=== PATIENT | female | born 1970 | race Two or more races ===

== ENCOUNTER 2018-11-20 08:22 | Emergency (ER) | payer BC, OTHER ==
[2018-11-20] MEDS ORDERED: MORPHINE SULFATE 10 MG/ML INJ IV ONE ×3 (09:25→15:49)
[2018-11-20] MEDS ORDERED: DICYCLOMINE HCL INJ 20 MG/2 ML AMPULE IM ONE (09:25)
[2018-11-20] MEDS ORDERED: ONDANSETRON HCL INJ/PF 4 MG/2 ML SDV IV ONE (09:25)
--- NOTE | 2018-11-20 09:28 | ER Document Report ---
Addendum entered and electronically signed by DAPHNIE CHAUDHRY NP 11/20/18 17:43: Course - Re-evaluation Re-evalutation: 11/20/18 17:40 Transport is at bedside to transport the patient at this time. Patient's vital signs are stable. Patient currently denying any pain and is stable for transport. - Vital Signs Vital signs: Temp Pulse Resp BP Pulse Ox 98.0 F 65 16 127/57 H 99 11/20/18 14:04 11/20/18 14:04 11/20/18 14:04 11/20/18 14:04 11/20/18 14:04 - Laboratory Result Diagrams: 11/20/18 11:25 11/20/18 09:41 Laboratory results interpreted by me: 11/20/18 11/20/18 11/20/18 09:41 11:25 11:25 WBC 12.2 H Hgb 7.2 L Hct 26.3 L MCV 58 L MCH 15.9 L MCHC 27.2 L RDW 21.5 H Seg Neutrophils % 88.8 H Lymphocytes % 6.1 L Absolute Neutrophils 10.8 H Creatinine 0.42 L Glucose 147 H Urine Protein 30 H Urine Blood MODERATE H Original Note: ED General - General Chief Complaint: Abdominal Pain Stated Complaint: STOMACH PAIN Time Seen by Provider: 11/20/18 09:11 Notes: 48-year-old female presents to the emergent complaining of nausea vomiting and abdominal pain. The patient rates the abdominal pain is severe 10/10. Patient stated this began yesterday at about 11 PM. The patient stated she had a fairly large bowel movement at 6 PM. She usually eats fennel seeds. She is complaining of a lot of pain. She denies fever chills has no history of the otitis. Denies any black bloody or tarry stools denies chest pain denies shortness of breath denies calf pain or leg swelling describes the pain as aching and severe. States it does come and go. Think she does makes it better or worse. TRAVEL OUTSIDE OF THE [place] IN LAST 30 DAYS: No - Related Data Allergies/Adverse Reactions: hydromorphone HCl [From Dilaudid] Adverse Reaction (Verified 11/20/18 08:23) Nausea Past Medical History - Social History Smoking Status: Unknown if Ever Smoked Family History: None Patient has suicidal ideation: No Patient has homicidal ideation: No Renal/ Medical History: Denies: Hx Peritoneal Dialysis Past Surgical History: Reports: Hx Abdominal Surgery - gastric bypass, Hx Cholecystectomy - Immunizations Hx Diphtheria, Pertussis, Tetanus Vaccination: No - unknown Review of Systems - Review of Systems Constitutional: denies: Chills, Fever Cardiovascular: denies: Chest pain, Dyspnea, Edema Respiratory: denies: Cough Gastrointestinal: Abdominal pain, Nausea, Vomiting, Constipation. denies: Diarrhea Genitourinary: denies: Dysuria Neurological/Psychological: denies: Headaches -: Yes All other systems reviewed and negative Physical Exam - Vital signs Vitals: Pulse Resp BP Pulse Ox 75 20 129/72 H 100 11/20/18 08:26 11/20/18 08:26 11/20/18 08:26 11/20/18 08:26 - Notes Notes: GENERAL_APPEARANCE: well_nourished, alert, cooperative, and appears uncomfortable VITALS: reviewed, see vital signs table. HEAD: no_swelling\tenderness on the head. EYES: PERRL, EOMI, conjunctiva_clear. NOSE: no_nasal_discharge. MOUTH: (-)decreased moisture. THROAT: no_throat_inflammation, no_airway_obstruction. no_lymphadenopathy NECK: supple, no_neck_tenderness, (-)thyromegaly. BACK: no_back_tenderness. CHEST_WALL: no_chest_tenderness. LUNGS: no_wheezing, no_rales, no_rhonchi, (-)accessory muscle use, good air exchange bilateral. HEART: normal_rate, normal_rhythm, normal_S1, normal_S2, (-)S3, (-)S4, no_murmur, no_rub. ABDOMEN: normal_BS, soft, diffuse but more so on the left lower quadrant_abd_tenderness, (-)guarding, (-)rebound, no_organomegaly, no_abd_masses. EXTREMITIES: good pulses in all_extremities, no_swelling\tenderness in the extremities, no_edema. SKIN: warm, dry, good_color, no_rash. MENTAL_STATUS: speech_clear, oriented_X_3, anxious_affect, responds_approp riately to questions. Course - Re-evaluation Re-evalutation: 11/20/18 09:28 48-year-old female presents with left lower quadrant abdominal pain. We will do a CT scan blood work and assess for diverticulitis. She does not have an acute surgical abdomen on exam. 11/20/18 14:09 Abdomen/Pelvis CT 11/20/18 09:24 IMPRESSION: 1. Partial small bowel obstruction. 2. Chronic hydronephrosis associated with 11 mm stone in the right UPJ. Pt has hx of gastric bypass - Done by Dr Pierce at [facility] Hx of Chronic stone cared for by unknown urologist at [facility] -patient unable to remember the exact urologist name. She states she has had this done before I spoke with the patient she would likely need to be admitted. She has a partial small bowel obstruction she is still vomiting. We will try some additional nausea medicine. She does not want to stay here all her doctors and surgeons have been at [facility] [place]. I have called them and they have accepted the patient. Accepting is Dr. Mane Edwards. We are holding off on putting a NG tube because of the patient's history of gastric bypass. - Vital Signs Vital signs: Temp Pulse Resp BP Pulse Ox 98.0 F 65 16 127/57 H 99 11/20/18 14:04 11/20/18 14:04 11/20/18 14:04 11/20/18 14:04 11/20/18 14:04 - Laboratory Result Diagrams: 11/20/18 11:25 11/20/18 09:41 Laboratory results interpreted by me: 11/20/18 11/20/18 11/20/18 09:41 11:25 11:25 WBC 12.2 H Hgb 7.2 L Hct 26.3 L MCV 58 L MCH 15.9 L MCHC 27.2 L RDW 21.5 H Seg Neutrophils % 88.8 H Lymphocytes % 6.1 L Absolute Neutrophils 10.8 H Creatinine 0.42 L Glucose 147 H Urine Protein 30 H Urine Blood MODERATE H Discharge - Discharge Clinical Impression: Small bowel obstruction, Kidney stone on right side Condition: Good Disposition: [facility] Referrals: DAVID HUMPHREY MD [Primary Care Provider] - Follow up as needed
[2018-11-20 10:12] LABS: ALANINE AMINOTRANSFERASE 20 U/L (9-52); ALBUMIN 4.7 g/dL (3.5-5.0); ALKALINE PHOSPHATASE 107 U/L (38-126); ANION GAP 12 (5-19); ASPARTATE AMINO TRANSFERASE 33 U/L (14-36); BILIRUBIN,DIRECT 0.2 mg/dL (0.0-0.4); BILIRUBIN,TOTAL 0.7 mg/dL (0.2-1.3); BLOOD UREA NITROGEN 13 mg/dL (7-20); CALCIUM 9.9 mg/dL (8.4-10.2); CARBON DIOXIDE 24 mmol/L (22-30); CHLORIDE 106 mmol/L (98-107); GLUCOSE 147 mg/dL (75-110); LIPASE 67.6 U/L (23-300); POTASSIUM 4.1 mmol/L (3.6-5.0); SODIUM 141.5 mmol/L (137-145); TOTAL PROTEIN 7.9 g/dL (6.3-8.2)
[2018-11-20 10:20] LABS: INTERNATIONAL RATION (INR) 0.99; PROTHROMBIN TIME 13.6 SEC (11.4-15.4)
--- NOTE | 2018-11-20 10:35 | RADIOLOGY REPORT (SQ) ---
EXAM DESCRIPTION: CT ABD/PELVIS WITH IV ONLY COMPLETED DATE/TIME: 11/20/2018 10:19 am REASON FOR STUDY: ABD pAIN COMPARISON: None. TECHNIQUE: CT scan of the abdomen and pelvis performed using helical scanning technique with dynamic intravenous contrast injection. No oral contrast. Images reviewed with lung, soft tissue, and bone windows. Reconstructed coronal and sagittal MPR images reviewed. Delayed images for evaluation of the urinary system also acquired. All images stored on PACS. All CT scanners at this facility use dose modulation, iterative reconstruction, and/or weight based d osing when appropriate to reduce radiation dose to as low as reasonably achievable (ALARA). [facility]: Dose Right [facility]: CareDose [facility]: Dose Right [facility]: Teradose 4D [facility]: Tangible Cryptography CONTRAST TYPE AND DOSE: contrast/concentration: Isovue 350.00 mg/ml; Total Contrast Delivered: 100.0 ml; Total Saline Delivered: 72.0 ml RENAL FUNCTION: Not available. RADIATION DOSE: CT Rad equipment meets quality standard of care and radiation dose reduction techniq ues were employed. CTDIvol: 18.3 - 20.0 mGy. DLP: 2147 mGy-cm.. LIMITATIONS: None. FINDINGS: LOWER CHEST: Hiatal hernia. LIVER: Normal size. No masses. No dilated ducts. SPLEEN: Normal size. No focal lesions. PANCREAS: No masses. No significant calcifications. No adjacent inflammation or peripancreatic fluid collections. Pancreatic duct not dilated. GALLBLADDER: Surgically absent. ADRENAL GLANDS: No significant masses or asymmetry. RIGHT KIDNEY AND URETER: No solid masses. 11 mm stone in the UPJ measuring 1,100 HU. Chronic appe aring dilatation of the lower pole calices. LEFT KIDNEY AND URETER: No solid masses. No significant calcifications. No hydronephrosis or hydr oureter. AORTA AND VESSELS: No aneurysm. No dissection. Renal arteries, SMA, celiac without stenosis. RETROPERITONEUM: No retroperitoneal adenopathy, hemorrhage or masses. BOWEL AND PERITONEAL CAVITY: Prior gastric bypass. Dilated loops of small bowel with gas fluid level s proximal jejunum. No clear transition however the more distal jejunum and terminal ileum are germán l in caliber. No free air or ascites. APPENDIX: Normal. PELVIS: No mass. No free fluid. Normal bladder. ABDOMINAL WALL: No masses. No hernias. BONES: No significant or acute findings. OTHER: No other significant finding. IMPRESSION: 1. Partial small bowel obstruction. 2. Chronic hydronephrosis associated with 11 mm stone in the right UPJ. TECHNICAL DOCUMENTATION: JOB ID: [id number] Quality ID # [id number]: Final reports with documentation of one or more dose reduction techniques (e.g., Au tomated exposure control, adjustment of the mA and/or kV according to patient size, use of iterative reconstruction technique) 2010 [employer]- All Rights Reserved Reading location - IP/workstation name: [email or web address]
[2018-11-20 11:35] LABS: ABSOLUTE BASOPHILS # (AUTO) 0.2 10^3/uL (0.0-0.2); ABSOLUTE EOSINOPHILS # (AUTO) 0.1 10^3/uL (0.0-0.6); ABSOLUTE LYMPHOCYTES (AUTO) 0.7 10^3/uL (0.5-4.7); ABSOLUTE MONOCYTES (AUTO) 0.4 10^3/uL (0.1-1.4); ABSOLUTE NEUT (AUTO) 10.8 10^3/uL (1.7-8.2); BASOPHILS % (AUTO) 1.4 % (0-2); EOSINOPHILS % (AUTO) 0.4 % (0-6); LYMPHOCYTES % (AUTO) 6.1 % (13-45); MONOCYTES % (AUTO) 3.3 % (3-13); PLATELET COUNT 352 10^3/uL (150-450); SEGMENTED NEUTROPHILS % (AUTO) 88.8 % (42-78); TOTAL CELLS COUNTED % (AUTO) 100 %; WHITE BLOOD COUNT 12.2 10^3/uL (4.0-10.5)
[2018-11-20 11:46] LABS: APPEARANCE,URINE CLEAR; BILIRUBIN,URINE NEGATIVE (NEGATIVE); COLOR,URINE YELLOW; GLUCOSE, URINE NEGATIVE (NEGATIVE); HEMOGLOBIN 7.2 g/dL (12.0-15.5); KETONES,URINE NEGATIVE (NEGATIVE); LEUKOCYTE ESTERASE,URINE NEGATIVE (NEGATIVE); NITRITE,URINE NEGATIVE (NEGATIVE); PROTEIN,URINE 30 mg/dL (NEGATIVE); UROBILINOGEN,URINE NEGATIVE mg/dL (<2.0)
[2018-11-20 11:47] LABS: URINE SPECIFIC GRAVITY > 1.060
[2018-11-20 11:52] LABS: HEMATOCRIT 26.3 % (36.0-47.0)
[2018-11-20 11:53] LABS: MEAN CORPUSCULAR HEMOGLOBIN 15.9 pg (27.0-33.4); RED BLOOD COUNT 4.52 10^6/uL (3.72-5.28)
[2018-11-20 11:54] LABS: MEAN CORPUSCULAR HGB CONC 27.2 g/dL (32.0-36.0); MEAN CORPUSCULAR VOLUME 58 fl (80-97); RED CELL DISTRIBUTION WIDTH 21.5 % (11.5-14.0)
[2018-11-20 12:14] LABS: ANISOCYTOSIS 3+; HYPOCHROMASIA 3+; OVALOCYTES 3+; PLATELET COMMENT ADEQUATE; PLATELET LARGE PRESENT; POIKILOCYTOSIS 3+; TEAR DROP CELLS SLIGHT
--- NOTE | 2018-11-20 12:52 | EKG REPORT ---
SEVERITY:- BORDERLINE ECG - SINUS RHYTHM TALL R WAVE IN V2, CONSIDER RVH OR PMI : Confirmed by: Silvia Tucker 20-Nov-2018 12:51:04
[2018-11-20] MEDS ORDERED: METOCLOPRAMIDE HCL INJ/PF 10 MG/2 ML SDV IV ONE (15:49)
[2018-11-20 17:43] VITALS: BP 123/75
[2018-11-22 15:00] LABS: PATH REVIEW PATHOLOGIST REVIEWED
== END 2018-11-20 17:55 | disposition short-term general hospital (02) ==
LOC: ER 08:22
DX: K56.609 Unspecified intestinal obstruction, unspecified as to partial versus complete obstruction (principal); N20.0 Calculus of kidney; R10.32 Left lower quadrant pain; R11.2 Nausea with vomiting, unspecified; K59.00 Constipation, unspecified
CPT/HCPCS: 93005; 96376; 99285; 96372; 96374; 96375; 36415; 83690; 85025; 85610; 81025; 80053; 81001; 74177; 93010; J0500; J2765; J2270; J2405